=== PATIENT | male | born 1960 ===

== ENCOUNTER 2016-12-24 15:21 | Emergency (ER) | payer MEDICARE, MEDICAID ==
--- NOTE | 2016-12-24 15:54 | C.PDOC ---
History Of Present Illness 56 year old male with a history of Cerebral Palsy presents to the ED with complaints of intermittent, dull, and throbbing lower back pain in the lumbar region exacerbated by movement and twisting. Patient notes decrease in functionality because of pain. He notes similar pain in the past that has been evaluated and treated with pain management. Patient states pain radiates to hips bilaterally, more pain in the left than the right. He denies trauma, fever , chills, constipation, or diarrhea. Time Seen by Provider: 12/24/16 15:43 Chief Complaint (Nursing): Back Pain History Per: Patient History/Exam Limitations: no limitations Onset/Duration Of Symptoms: Days (1 week ), Intermittent Episodes Current Symptoms Are (Timing): Still Present Quality Of Discomfort: "Pain" Severity: Severe Pain Scale Rating Of: 8 Previous Symptoms: Back Pain Associated Symptoms: None Exacerbating Factor(s): Turning (twisting), Movement Recent travel outside of the [place]: No Past Medical History Reviewed: Historical Data, Nursing Documentation, Vital Signs Vital Signs: Last Vital Signs Temp 98.0 F 12/24/16 17:43 Pulse 60 12/24/16 17:43 Resp 18 12/24/16 17:43 BP 120/73 12/24/16 17:43 Pulse Ox 97 12/24/16 17:43 Family History: States: Unknown Family Hx - Social History Hx Alcohol Use: No Hx Substance Use: No - Immunization History Hx Tetanus Toxoid Vaccination: No Hx Influenza Vaccination: Yes (2015) Hx Pneumococcal Vaccination: Yes (2014) Review Of Systems Constitutional: Negative for: Fever, Chills Gastrointestinal: Negative for: Vomiting, Constipation Genitourinary: Negative for: Dysuria Musculoskeletal: Positive for: Back Pain (lower lumbar back pain radiates to bilateral hips ) Neurological: Negative for: Weakness, Numbness Physical Exam - Physical Exam Appears: Non-toxic, No Acute Distress, Other (Evidence of cerebral palsy ) Skin: Warm, Dry, No Ecchymosis Head: Atraumatic Eye(s): bilateral: Normal Inspection, EOMI Oral Mucosa: Moist Neck: Supple Chest: Symmetrical, No Deformity Cardiovascular: Rhythm Regular Respiratory: No Wheezing Back: Other (Lower lumbar spine tender to palpation ) Extremity: Normal ROM, No Tenderness, No Deformity, No Swelling Neurological/Psych: Oriented x3 Gait: Steady ED Course And Treatment O2 Sat by Pulse Oximetry: 98 (room air) - CT Scan/US CT Lumbar Spine without contrast Other Rad Studies (CT/US): Read By Radiologist, Radiology Report Reviewed CT/US Interpretation: FINDINGS: VERTEBRAE: Unremarkable. No fracture. Normal alignment. DISCS/SPINAL CANAL/NEURAL FORAMINA: L1-2: Unremarkable. L2-3: Unremarkable. 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 Associated hypertrophy of ligamentum flavum. L4-5: Mild bulging annulus. Mild canal narrowing. L5-S1: Mild bulging annulus without focal disc herniation. Congenital narrowing of the canal/spinal stenosis. PARASPINAL SOFT TISSUES: Unremarkable. OTHER FINDINGS: 2 mm nonobstructing calculus lower pole left kidney. IMPRESSION: No acute findings. Mild canal stenosis at multiple levels described in greater detail above. No focal disc herniation. Progress Note: Patient was given Tylenol, Motrion, and Lidocaine 5%. A CT was performed and patient was discharged home. Disposition Counseled Patient/Family Regarding: Studies Performed, Diagnosis, Need For Followup, Rx Given - Disposition Disposition: HOME/ ROUTINE Disposition Time: 17:32 Condition: STABLE Additional Instructions: [place] doctor. Prescriptions: Ibuprofen [Motrin] 600 mg PO TID #15 tab Lidocaine 5% [Lidoderm] 1 ea TD DAILY #2 patch traMADol/Acetaminophen [Ultracet 37.5/325 mg] 1 tab PO TID PRN #15 tab PRN Reason: pain Instructions: Acute Low Back Pain (DC) Forms: Gen Discharge Inst Urdu, [facility] (Urdu) - POA Present On Arrival: None - Clinical Impression Clinical Impression: Low back pain - Scribe Statement The provider has reviewed the documentation as recorded by the Scribhunter Douglas All medical record entries made by the Scribe were at my direction and personally dictated by me. I have reviewed the chart and agree that the record accurately reflects my personal performance of the history, physical exam, medical decision making, and the department course for this patient. I have also personally directed, reviewed, and agree with the discharge instructions and disposition.
[2016-12-24] MEDS ORDERED: Lidocaine 5% Patch TD STA (15:58)
[2016-12-24] MEDS ORDERED: Lidocaine 5% Patch TD ONE (16:08)
--- NOTE | 2016-12-24 17:27 | CT ---
PROCEDURE: CT Lumbar Spine without contrast HISTORY: patient with CP, back Pain. No history of recent/ related trauma provided COMPARISON: None. TECHNIQUE: Axial computed tomography images were obtained of the lumbar spine without the use of intravenous contrast. Coronal and sagittal reformatted images were created and reviewed. Radiation dose: Total exam DLP = 429.33 mGy-cm. This CT exam was performed using one or more of the following dose reduction techniques: Automated exposure control, adjustment of the mA and/or kV according to patient size, and/or use of iterative reconstruction technique. FINDINGS: VERTEBRAE: Unremarkable. No fracture. Normal alignment. DISCS/SPINAL CANAL/NEURAL FORAMINA: L1-2: Unremarkable. 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 Associated hypertrophy of ligamentum flavum. L4-5: Mild bulging annulus. Mild canal narrowing. L5-S1: Mild bulging annulus without focal disc herniation. Congenital narrowing of the canal/spinal stenosis. PARASPINAL SOFT TISSUES: Unremarkable. OTHER FINDINGS: 2 mm nonobstructing calculus lower pole left kidney. IMPRESSION: No acute findings. Mild canal stenosis at multiple levels described in greater detail above. No focal disc herniation.
[2016-12-24 17:48] VITALS: BP 120/73; PULSE 60; RESP 18; TEMP 98
[2016-12-24 18:26] VITALS: O2SAT 98
== END 2016-12-24 17:43 | disposition home or self-care (01) ==
LOC: C.ER 15:21
DX: M54.5 Low back pain (principal)

== ENCOUNTER 2018-03-02 14:23 | Emergency (ER) | payer MEDICARE, MEDICAID ==
[2018-03-02 14:52] VITALS: BP 116/77; PULSE 72; RESP 20; TEMP 98; O2SAT 97
--- NOTE | 2018-03-02 16:00 | C.PDOC ---
History Of Present Illness 58 year old male present to the ED for evaluation a generalized rash for 1 week. Per mother the patient had been experiencing a generalized rash described as red and itchy. Denies swelling, chest pain, shortness of breath, fever, vomiting, nausea, and any other associated symptoms. Time Seen by Provider: 03/02/18 14:58 Chief Complaint (Nursing): Abnormal Skin Integrity History Per: Patient, Family () History/Exam Limitations: no limitations Onset/Duration Of Symptoms: Days Current Symptoms Are (Timing): Still Present Past Medical History Reviewed: Historical Data, Nursing Documentation, Vital Signs Vital Signs: Last Vital Signs Temp 98.0 F 03/02/18 14:50 Pulse 72 03/02/18 14:50 Resp 20 03/02/18 14:50 BP 116/77 03/02/18 14:50 Pulse Ox 97 03/02/18 14:50 Family History: States: Unknown Family Hx - Social History Hx Alcohol Use: No Hx Substance Use: No - Immunization History Hx Tetanus Toxoid Vaccination: No Hx Influenza Vaccination: Yes (2015) Hx Pneumococcal Vaccination: Yes (2014) Review Of Systems Except As Marked, All Systems Reviewed And Found Negative. Constitutional: Negative for: Fever Cardiovascular: Negative for: Chest Pain Respiratory: Negative for: Shortness of Breath Gastrointestinal: Negative for: Nausea, Vomiting Skin: Positive for: Rash (generalized. ) Physical Exam - Physical Exam Appears: Well, Non-toxic, No Acute Distress Skin: Warm, Dry, Other (scattered urticarial rash, diffusely.) Head: Atraumatic, Normacephalic Eye(s): bilateral: Normal Inspection Tongue: Normal Appearing, No Swelling Lips: Normal Appearing, No Swelling Throat: Normal, No Erythema, No Exudate Neck: Normal ROM, Supple Chest: Symmetrical Cardiovascular: Rhythm Regular, No Murmur Respiratory: Normal Breath Sounds, No Rales, No Rhonchi, No Wheezing Neurological/Psych: Oriented x3, Normal Speech ED Course And Treatment O2 Sat by Pulse Oximetry: 97 (RA) Pulse Ox Interpretation: Normal Medical Decision Making Medical Decision Making: Plan: --Benadryl --Prednisone Progress/Update: Patient stable for discharge home. Prescribed Prenisone. Disposition - Disposition Referrals: Carmelo Palmer MD [Medical Doctor] - Disposition: HOME/ ROUTINE Disposition Time: 15:58 Condition: STABLE Additional Instructions: Follow up with the medical doctor within 1-2 days. Return if worsened. Prescriptions: DiphenhydrAMINE [Benadryl] 25 mg PO QID #28 cap predniSONE [Prednisone] 20 mg PO BID #10 tab Instructions: Hives Forms: [facility] (Yakut) - Clinical Impression Clinical Impression: Urticaria - PA / [facility] LEAD PSYCHOLOGIST / Resident Statement MD/DO has reviewed & agrees with the documentation as recorded. - Scribe Statement The provider has reviewed the documentation as recorded by the Scribe (Nano Murphy) All medical record entries made by the Scribe were at my direction and personally dictated by me. I have reviewed the chart and agree that the record accurately reflects my personal performance of the history, physical exam, medical decision making, and the department course for this patient. I have also personally directed, reviewed, and agree with the discharge instructions and disposition.
== END 2018-03-02 16:14 | disposition home or self-care (01) ==
LOC: C.ER 14:23
DX: L50.9 Urticaria, unspecified (principal)

== ENCOUNTER 2018-07-06 10:32 | Outpatient (CLI) | payer MEDICARE, MEDICAID | END 2018-07-06 10:33 | disposition home or self-care (01) | LOC: C.PAT 10:32 ==

== ENCOUNTER 2018-07-15 05:55 | Day surgery (SDC) | payer MEDICARE, MEDICAID ==
[2018-07-06 11:00] VITALS: BMI 22.7
[2018-07-15] MEDS ORDERED: Bupivacaine HCl 0.25% PF (10 ml) Inj ONE (07:43)
[2018-07-15] MEDS ORDERED: Lidocaine Hydrochloride 10 ML INJ ONE ×2 (07:43→08:19)
[2018-07-15] MEDS ORDERED: Clindamycin 600mg/50ml NS 600 MG/50 ML BAG IVPB ONE (07:45)
[2018-07-15] MEDS ORDERED: Midazolam 2 MG/2 ML VIAL ONE (08:00)
[2018-07-15] MEDS ORDERED: Propofol 10 mg/ml Inj (20 ML) ONE (08:00)
[2018-07-15] MEDS ORDERED: Lidocaine Hydrochloride 5 ML INJ ONE (08:02)
[2018-07-15] MEDS: Bupivacaine 0.25% 20 ML INJ IJ ONE ×2 (08:56→08:58)
--- NOTE | 2018-07-15 09:12 | PCM.SURG1 ---
Surgeon's Initial Post Op Note - Surgeon's Notes Surgeon: Dr. Brice Gonzalez, DPM Network Support Technician: Dr. Geovani Hernandez PGY2, Dr. Cleve Gillis PGY1 Type of Anesthesia: IV Sedation, Local Anesthesia Administered By: Dr. Heard Pre-Operative Diagnosis: Hallux Rigidus, left foot Operative Findings: Hallux rigidus, left foot. M- 3-0 vicryl, 4-0 vicryl, 4-0 nylon. I- preop: 20 cc 1:1 1% lidocaine plain, 0.25% marcaine plain. intraop: 10 cc 1% lidocaine plain. postop: 17 cc 0.25% marcaine plain Post-Operative Diagnosis: Same Operation Performed: Left foot first metatarsophalangeal joint cheilectomy Specimen/Specimens Removed: Bone left foot Estimated Blood Loss: EBL {In ML}: 1 Blood Products Given: N/A Drains Used: No Drains Post-Op Condition: Good Date of Surgery/Procedure: 07/15/18 Time of Surgery/Procedure: 09:13
[2018-07-15] MEDS ORDERED: Oxycodone/Acetaminophen 5/325 mg Tab PO PRN ×2 (09:14)
[2018-07-15] MEDS ORDERED: HYDROmorphone 0.5 mg/0.5 ml ISec IVP PRN (09:22)
[2018-07-15] MEDS ORDERED: Lactated Ringer's 1,000 ML IV SCH (09:30)
[2018-07-15 11:41] VITALS: BP 110/73; PULSE 54; RESP 18; TEMP 96; O2SAT 97
--- NOTE | 2018-07-15 13:33 | RAD ---
Date of service: 07/15/2018 PROCEDURE: Left Foot Radiographs. HISTORY: s/p left foot surgery COMPARISON: None. FINDINGS: BONES: Recent post operative osteotomy changes over the medial 1st metatarsal head suggested here bandaging present No unexpected cortical changes otherwise noted. No periosteal reaction seen. 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 SOFT TISSUES: Diffuse mid forefoot soft tissue swelling dorsal and plantar aspect noted. OTHER FINDINGS: Os peroneum incidentally noted. IMPRESSION: Recent osseous and soft tissue postop changes inferred. No periosteal reaction seen to suggest acute osteomyelitis. Continued surveillance recommended.
--- NOTE | 2018-07-16 07:27 | OP ---
PROCEDURE DATE: 07/15/2018 PREOPERATIVE DIAGNOSIS: Left foot hallux rigidus. POSTOPERATIVE DIAGNOSIS: Left foot hallux rigidus. PROCEDURE PERFORMED: Cheilectomy of left foot first metatarsophalangeal joint. SURGEON: Brice Gonzalez DPM. CARD FEEDER: Geovani Hernandez DPM, PGY-2 and Cleve Gillis MD, PGY-1. ANESTHESIOLOGIST: Awais Heard CRNA. ANESTHESIA: IV sedation with local. INDICATIONS: The patient is a 68-year-old male with the above-mentioned diagnosis. The patient is being treated by Dr. Gonzalez in his office on an outpatient basis where he has exhausted multiple forms of conservative treatment options. At this time, the patient now seeks surgical intervention. at this time and now requires surgical intervention. All risks, benefits, and possible complications of the proposed procedure have been explained to the patient at length. The patient verbalized understanding and wishes to proceed. All questions were answered. No guarantees were given nor implied. Consent was signed and n.p.o. was confirmed prior to taking the patient to the operating room. OPERATIVE PROCEDURE: The patient was brought into the operating room and placed on the operating room table in a supine position. A pneumatic ankle tourniquet at a pressure setting of 250 mmHg was utilized during the entirety of the procedure. Once IV sedation achieved, local injection of 20 mL of 1:1 mixture of 0.25% Marcaine plain and 1% lidocaine plain was introduced in a local block fashion to the left foot. Once the local anesthesia was achieved, foot was prepped and draped in the usual sterile manner and the procedure began. PROCEDURE #1: LEFT FOOT FIRST METATARSOPHALANGEAL JOINT CHEILECTOMY. Attention was then directed to the dorsal aspect of the first metatarsal head of the left foot and approximately 6-cm linear longitudinal incision was made medial and parallel to the tendon of the extensor hallucis longus involving the contour of the deformity. Incision was deepened in through the subcutaneous tissues using sharp and blunt dissection. Care was taken to identify and retract all vital neurovascular structures. All bleeders were cauterized and ligated as necessary. At this time, an inverted capsulotomy was performed over the dorsal aspect of the first metatarsophalangeal joint. Periosteal and capsular structures were then carefully dissected through the osseous attachments and retracted medially and laterally. head of the first metatarsal on the operative site. Next, utilizing the surgical bone saw, dorsal and medial prominences of the first metatarsal were resected and passed from the operative field. All rough edges were then smoothed down using a manual bone rasp. It was noted at this time that the first metatarsophalangeal joint had a much improved range of motion in the sagittal plane. The surgical site was then flushed with copious amounts of normal sterile saline. Capsular layer was reapproximated using 3-0 Vicryl suture and subcutaneous layer was reapproximated using 4-0 Vicryl suture and the skin layer was reapproximated and well coapted using 4-0 Nylon suture and the procedure was completed. During the procedure, further 10 mL of 1% lidocaine plain was introduced in a local block fashion to the left foot. Following the procedure, 17 mL of 0.25% Marcaine plain was introduced in a local block fashion to the left foot as well. Surgical site was then dressed with Betadine-soaked Xeroform, a length of gauze, regular gauze, Kerlix, Coban, and the procedure was completed. POSTOPERATIVE CONDITION: The patient tolerated the anesthesia and procedure well without any apparent complications or complaints. The patient was escorted from the operating room to the recovery room with vital signs stable and neurovascular structures intact. The patient will follow up with Dr. Gonzalez in his office on an outpatient basis. Geovani Hernandez DPM Brice Gonzaelz DPM
== END 2018-07-15 10:54 | disposition home or self-care (01) ==
LOC: C.SDS 05:55 → EDSTATUS 07:45 → C.SDS 10:54
PROVIDERS: ATTEND Podiatrist
DX: M20.22 Hallux rigidus, left foot (principal)
CPT/HCPCS: 28289; 73630; 88304; J2250; J2704; J3010